=== PATIENT | female | born 1940 | race Caucasian/White ===

== ENCOUNTER 2016-06-03 02:10 | Emergency (ER) | payer OTHER, MEDICARE ==
[~2016-06-03] VITALS: Ht 160 cm; Wt 60.0 kg
[~2016-06-03 02:10] MED LIST: CIPRO500 MG PO; COLACE100 MG PO; ECOTRIN325 MG PO; HYDROCHLOROTH12.5 M3 PO; HYDROCHLOROTH12.5 MG; HYDROCODON-ACE1 EAC7 PO; KEFLEX500 MG PO; KENALOG,ARISTOC15 G2 TP; LOVASTATIN40 MG PO; MICARDIS40 MG PO; NAPROXEN500 MG PO; NEXIUM40 MG PO; OMEPRAZOLE20 MG PO; PRESERVISION T1 EACH PO; TOBREX3.5 GM LEFT EYE; TRAMADOL HCL50 MG PO; ULTRAM50 MG PO; VITAMIN D2000 UNI1 PO; ZOFRAN ODT8 MG PO; ZOFRAN4 MG PO
[2016-06-03 03:01] LABS: HEMATOCRIT 40.8 % (36.0-46.0); MCH 29.7 PG (29.0-34.0); MCHC 33.1 G/DL (30.0-36.0); MCV 89.9 FL (83-99); MEAN PLAT.VOLUME 9.3 uM^3 (9.5-12.4); PLATELET COUNT 300 K/uL (156-360); RBC DIS.WIDTH-CV 12.8 % (11.8-14.6); RBC DIS.WIDTH-SD 41.8 % (39-53); RED BLOOD COUNT 4.54 M/uL (3.80-5.20)
[2016-06-03 03:15] LABS: CHLORIDE 104 mEq/L (99-109); POTASSIUM 3.6 mEq/L (3.7-5.4); SODIUM 140 mEq/L (136-147)
[2016-06-03 03:17] LABS: GLUCOSE 117 mg/dL (70-99)
[2016-06-03 03:19] LABS: ANION GAP 8 MEQ/L (2-14)
[2016-06-03 03:21] LABS: GFR ESTIMATE (CALCULATED) > 59 mL/min/
[2016-06-03 03:22] LABS: UREA NITROGEN (BUN) 13 mg/dL (9-23)
[2016-06-03 03:28] LABS: TROP-I INTERPRETATION NEGATIVE; TROPONIN-I < 0.01 ng/mL (0.0-0.30)
[2016-06-03 04:01] LABS: CREATINE KINASE 145 IU/L (1-294); TOTAL CK 145 IU/L (1-294)
[2016-06-03 04:06] LABS: CK-MB 1.5 ng/mL (0.0-4.9)
[2016-06-03 04:53] VITALS: BP 109/72
== END 2016-06-03 04:53 | disposition home or self-care (01) ==
LOC: EME 02:10
PROVIDERS: Emergency Medicine
DX: R00.2 Palpitations (principal); I10 Essential (primary) hypertension; E78.5 Hyperlipidemia, unspecified; Z96.651 Presence of right artificial knee joint
CPT/HCPCS: 71010; 72050; 80048; 82550; 82550 91; 82553; 84484; 85027; 93005; 99281; 99284

== ENCOUNTER 2016-08-25 07:27 | Observation (INO) | payer OTHER, MEDICARE ==
[~2016-08-25] VITALS: Ht 160 cm; Wt 53.9 kg
[2016-08-25 08:23] LABS: BASOPHIL COUNT 0.1 K/uL (0-0.1); EOSINOPHIL COUNT 0.1 K/uL (0-0.3); HEMATOCRIT 39.6 % (36.0-46.0); IMMATURE GRANULOCYTE (%) 0.4 % (0.0-0.7); LYMPHOCYTE COUNT 1.8 K/uL (1.0-2.8); MCH 29.8 PG (29.0-34.0); MCHC 32.6 G/DL (30.0-36.0); MCV 91.5 FL (83-99); MEAN PLAT.VOLUME 9.3 uM^3 (9.5-12.4); MONOCYTE (%) 9.3 % (3-12); MONOCYTE COUNT 0.5 K/uL (0-0.8); NEUTROPHIL (%) 54.9 % (45-76); PLATELET COUNT 286 K/uL (156-360); RBC DIS.WIDTH-SD 43.8 % (39-53); RED BLOOD COUNT 4.33 M/uL (3.80-5.20); WHITE BLOOD COUNT 5.5 K/uL (4.1-10.2)
[2016-08-25 08:34] LABS: CHLORIDE 106 mEq/L (99-109); POTASSIUM 3.7 mEq/L (3.7-5.4); SODIUM 142 mEq/L (136-147)
[2016-08-25 08:36] LABS: GLUCOSE 113 mg/dL (70-99)
[2016-08-25 08:37] LABS: ANION GAP 9 MEQ/L (2-14)
[2016-08-25 08:40] LABS: GFR ESTIMATE (CALCULATED) > 59 mL/min/
[2016-08-25 08:41] LABS: UREA NITROGEN (BUN) 13 mg/dL (9-23)
[2016-08-25 08:44] LABS: TROP-I INTERPRETATION NEGATIVE; TROPONIN-I < 0.01 ng/mL (0.0-0.30)
[2016-08-25] MEDS ORDERED: TYLENOL EXTRA500 MG PO (10:49)
[2016-08-25] MEDS ORDERED: FLONASE SENSIM9.9 ML BOTH NARES (10:50)
[2016-08-25 13:04] VITALS: BP 129/82
[2016-08-25 15:23] LABS: TROP-I INTERPRETATION NEGATIVE; TROPONIN-I < 0.01 ng/mL (0.0-0.30)
[2016-08-25 16:48] VITALS: BP 119/66
[2016-08-25 19:22] VITALS: BP 109/58
[2016-08-25 20:27] LABS: TROP-I INTERPRETATION NEGATIVE; TROPONIN-I < 0.01 ng/mL (0.0-0.30)
[2016-08-26 00:56] VITALS: BP 102/57
[2016-08-26 04:33] VITALS: BP 103/64
[2016-08-26 06:36] LABS: HEMATOCRIT 38.4 % (36.0-46.0); MCH 30.4 PG (29.0-34.0); MCHC 32.8 G/DL (30.0-36.0); MCV 92.8 FL (83-99); MEAN PLAT.VOLUME 9.7 uM^3 (9.5-12.4); PLATELET COUNT 277 K/uL (156-360); RBC DIS.WIDTH-CV 13.3 % (11.8-14.6); RBC DIS.WIDTH-SD 45.4 % (39-53); RED BLOOD COUNT 4.14 M/uL (3.80-5.20); WHITE BLOOD COUNT 5.6 K/uL (4.1-10.2)
[2016-08-26 06:55] VITALS: BP 118/59
[2016-08-26 07:54] LABS: ANION GAP 6 MEQ/L (2-14); CHLORIDE 102 MEQ/L (99-109); GFR ESTIMATE (CALCULATED) > 59 mL/min/; SAMPLE HEMOLYSIS CHECK 0; SAMPLE ICTERIC CHECK 0; SAMPLE LIPEMIA CHECK 0; SODIUM 139 MEQ/L (136-147); UREA NITROGEN (BUN) 19 mg/dL (9-23)
[2016-08-26 07:55] LABS: GLUCOSE 81 mg/dL (70-99)
[2016-08-26] MEDS ORDERED: LIDOCAINE700 MG TD (10:32)
== END 2016-08-26 11:00 | disposition home or self-care (01) ==
LOC: EME 07:27 → 5WEST 12:08 → EDOF 12:08 → 5WEST 12:54
PROVIDERS: Emergency Medicine; Hospitalist
DX: R07.9 Chest pain, unspecified (principal); M25.511 Pain in right shoulder; M25.512 Pain in left shoulder; G89.29 Other chronic pain; M54.5 Low back pain; I10 Essential (primary) hypertension; E78.5 Hyperlipidemia, unspecified; Z96.651 Presence of right artificial knee joint
CPT/HCPCS: 71010; 80048; 84484; 85025; 85027; 93005; 93306; 99281; 99285; G0378; J1644

== ENCOUNTER 2017-07-19 17:27 | Emergency (ER) | payer OTHER, MEDICARE ==
[~2017-07-19] VITALS: Ht 160 cm; Wt 61.4 kg
[~2017-07-19 17:27] MED LIST changes: +FLONASE SENSIM9.9 ML BOTH NARES; +LIDOCAINE700 MG TD; +TYLENOL EXTRA500 MG PO
[2017-07-19 20:43] LABS: APPEARANCE SL.HAZY ((CLEAR)); BILIRUBIN NEGATIVE; BLOOD SMALL; COLOR STRAW ((YELLOW)); GLUCOSE (STRIP) NEGATIVE; KETONES NEGATIVE; LEUKOCYTES LARGE; NITRITE NEGATIVE; PROTEIN (STRIP) NEGATIVE; SPECIFIC GRAVITY 1.006 (1.000-1.030); UROBILINOGEN 0.2 MG/DL (0.2-1.0)
[2017-07-19 20:56] LABS: BACTERIA RARE /HPF; EPITHELIAL CELLS 1+ /HPF; MUCUS TRACE /LPF; UCUL ADDED? YES; WHITE BLOOD CELLS 30-40 /HPF (0-5)
[2017-07-19] MEDS ORDERED: KEFLEX500 MG PO (21:23)
[2017-07-19 22:01] VITALS: BP 146/79
== END 2017-07-19 22:02 | disposition home or self-care (01) ==
LOC: EME 17:27
PROVIDERS: Physician Assistant
DX: N39.0 Urinary tract infection, site not specified (principal); M54.5 Low back pain; G89.29 Other chronic pain; Z88.6 Allergy status to analgesic agent; Z88.1 Allergy status to other antibiotic agents
CPT/HCPCS: 72128; 72131; 81003; 87086; 99281; 99283

== ENCOUNTER → 2017-07-23 | Outpatient (CLI) | payer OTHER, MEDICARE | END | disposition home or self-care (01) | LOC: NUC 07:23 | DX: M89.8X8 Other specified disorders of bone, other site (principal); M41.85 Other forms of scoliosis, thoracolumbar region; M19.012 Primary osteoarthritis, left shoulder; M19.011 Primary osteoarthritis, right shoulder; M19.022 Primary osteoarthritis, left elbow; M19.021 Primary osteoarthritis, right elbow; M19.032 Primary osteoarthritis, left wrist; M19.031 Primary osteoarthritis, right wrist; M19.041 Primary osteoarthritis, right hand; M17.12 Unilateral primary osteoarthritis, left knee; Z96.651 Presence of right artificial knee joint; R93.7 Abnormal findings on diagnostic imaging of other parts of musculoskeletal system; M25.562 Pain in left knee; M54.5 Low back pain | CPT/HCPCS: 78315; A9503 ==

== ENCOUNTER 2017-10-25 07:36 | Emergency (ER) | payer OTHER, MEDICARE ==
[~2017-10-25] VITALS: Ht 157.5 cm; Wt 62.6 kg
[2017-10-25 08:20] LABS: HEMATOCRIT 38.1 % (36.0-46.0); HEMOGLOBIN 12.9 G/DL (11.9-15.5); MCH 31.2 PG (29.0-34.0); MCHC 33.9 G/DL (30.0-36.0); PLATELET COUNT 262 K/uL (156-360); RBC DIS.WIDTH-CV 12.6 % (11.8-14.6); RBC DIS.WIDTH-SD 42.5 % (39-53); RED BLOOD COUNT 4.14 M/uL (3.80-5.20); WHITE BLOOD COUNT 4.9 K/uL (4.1-10.2)
[2017-10-25 08:57] LABS: TROP-I INTERPRETATION NEGATIVE; TROPONIN-I < 0.01 ng/mL (0.0-0.30)
[2017-10-25 09:00] LABS: ALBUMIN 3.8 G/DL (3.2-4.8); ALKALINE PHOSPHATASE 46 IU/L (3-129); ALT (GPT) 12 IU/L (3-49); AST (GOT) 19 IU/L (2-34); CHLORIDE 105 MEQ/L (99-109); CREATININE 0.6 MG/DL (0.6-1.3); GFR ESTIMATE (CALCULATED) > 59 mL/min/; GLUCOSE 109 mg/dL (70-99); POTASSIUM 3.9 MEQ/L (3.7-5.4); SODIUM 139 MEQ/L (136-147); TOTAL BILIRUBIN 0.6 MG/DL (0.0-1.0); UREA NITROGEN (BUN) 13 mg/dL (9-23)
[2017-10-25 09:29] LABS: AMYLASE 30 IU/L (1-118); LIPASE 10 U/L (1.0-51.0)
[2017-10-25 12:05] LABS: TROP-I INTERPRETATION NEGATIVE; TROPONIN-I < 0.01 ng/mL (0.0-0.30)
[2017-10-25 12:51] VITALS: BP 139/85
== END 2017-10-25 12:53 | disposition home or self-care (01) ==
LOC: EME 07:36
PROVIDERS: Nurse Practitioner Family
DX: R10.11 Right upper quadrant pain (principal); I10 Essential (primary) hypertension; E78.5 Hyperlipidemia, unspecified; Z88.6 Allergy status to analgesic agent; Z88.1 Allergy status to other antibiotic agents
CPT/HCPCS: 71046; 74177; 80053; 82150; 83690; 84484; 85027; 93005; 99281; 99284; J7030